=== PATIENT | male | born 1990 | race Caucasian/White ===

== ENCOUNTER 2017-11-29 10:18 | Emergency (ER) | payer SELFPAY ==
[~2017-11-29] VITALS: Ht 167.6 cm; Wt 67.9 kg
[2017-11-29 10:36] VITALS: BP 108/79
[2017-11-29] MEDS ORDERED: DEXAMETHASONE 4 MG/ML, 5ML ONE (11:19)
[2017-11-29] MEDS ORDERED: DEXAMETHASONE 4 MG/ML, 1ML IM ONE (11:30)
== END 2017-11-29 11:31 ==
LOC: ED 11:00
DX: J02.9 Acute pharyngitis, unspecified (principal)
CPT/HCPCS: 96372; 99283; J1100

== ENCOUNTER 2018-09-06 22:48 | Emergency (ER) | payer MEDICAID, OTHER ==
[~2018-09-06] VITALS: Ht 175.3 cm; Wt 67.0 kg
[2018-09-06 22:50] VITALS: BP 126/76
[2018-09-06] MEDS ORDERED: LIDOCAINE-MPF 1%, 5ML ONE (23:14)
[2018-09-06] MEDS ORDERED: LIDOCAINE 1%, 10ML INFIL ONE (23:30)
[2018-09-06] MEDS ORDERED: AMOXICILLIN/CLAV 875-125MG TABLET ONE (23:53)
[2018-09-06] MEDS ORDERED: DEXAMETHASONE 4 MG TABLET ONE (23:56)
[2018-09-07] MEDS ORDERED: DEXAMETHASONE 4 MG TABLET PO ONE
[2018-09-07] MEDS ORDERED: AMOXICILLIN/CLAV 875-125MG TABLET PO ONE
== END 2018-09-07 00:01 | disposition home or self-care (01) ==
LOC: ED 23:57
DX: J36 Peritonsillar abscess (principal)
CPT/HCPCS: 42700; 99283; J3490

== ENCOUNTER 2019-01-26 00:04 | Emergency (ER) | payer SELFPAY ==
[~2019-01-26] VITALS: Ht 167.6 cm; Wt 68.0 kg
[2019-01-26 00:09] VITALS: BP 121/71
[2019-01-26] MEDS ORDERED: HYDROcodone/APAP 5/325 TABLET ONE (00:29)
[2019-01-26] MEDS ORDERED: HYDROcodone/APAP 5/325 TABLET PO ONE (00:30)
--- NOTE | 2019-01-26 00:51 | NUR ---
DC EDUCATION PROVIDED PT DEMONSTRATES UNDERSTANDING. PT AMBULATED STEADILY TO DC WITH RN. PT REPORTS HE WILL BE WALKING HOME AND LIVES NEAR BY. PT DRESSED APPROPRIATELY FOR WEATHER
== END 2019-01-26 00:53 | disposition home or self-care (01) ==
LOC: ED 00:43
DX: N48.22 Cellulitis of corpus cavernosum and penis (principal); B37.42 Candidal balanitis; F17.210 Nicotine dependence, cigarettes, uncomplicated
CPT/HCPCS: 82962; 99283

== ENCOUNTER 2019-07-24 22:58 | Emergency (ER) | payer SELFPAY ==
[~2019-07-24] VITALS: Ht 167.6 cm; Wt 72.7 kg
--- NOTE | 2019-07-25 00:10 | NUR ---
pt to room from lobby
[2019-07-25] MEDS ORDERED: LIDOCAINE 1%-EPI 1:100K, 20ML ONE (00:25)
[2019-07-25] MEDS ORDERED: DIPH,PERTUSS(ACELL),TET VAC/PF 0.5 ML IM-VACC ONE ×2 (00:25→00:30)
[2019-07-25] MEDS ORDERED: LIDOCAINE 1%-EPI 1:100K, 20ML INFIL ONE (00:30)
[2019-07-25] MEDS ORDERED: HYDROcodone/APAP 5/325 TABLET PO ONE (02:00)
[2019-07-25] MEDS ORDERED: HYDROcodone/APAP 5/325 TABLET ONE (02:17)
--- NOTE | 2019-07-25 02:20 | NUR ---
nydia rn: pt medicated per oct. pt to be d/c after recheck.
[2019-07-25 03:06] VITALS: BP 113/71
== END 2019-07-25 03:09 | disposition home or self-care (01) ==
LOC: ED 07-25 03:06
DX: S02.81XA Fracture of other specified skull and facial bones, right side, initial encounter for closed fracture (principal); S81.011A Laceration without foreign body, right knee, initial encounter; F17.210 Nicotine dependence, cigarettes, uncomplicated; X58.XXXA Exposure to other specified factors, initial encounter; Y93.89 Activity, other specified; Y92.410 Unspecified street and highway as the place of occurrence of the external cause; Y99.8 Other external cause status
CPT/HCPCS: 12031; 90471; 90715